=== PATIENT | female | born 1965 | race Caucasian/White ===

== ENCOUNTER 2020-04-21 02:27 | Inpatient (IN) | payer OTHER, SELFPAY ==
[~2020-04-21] VITALS: Ht 167.6 cm; Wt 48.8 kg
[~2020-04-21 02:27] MED LIST: KETO10 PO
[2020-04-21 02:51] LABS: Source, Urine Catheter
[2020-04-21 02:55] LABS: Bilirubin, Urine Neg (Neg); Blood, Urine 3+ (Neg); Glucose Qualitative, Urine Neg (Neg); Ketones, Urine Neg (Neg); Leukocyte Esterase, Urine 1+ (Neg); Nitrite, Urine Neg (Neg); Protein, Urine 3+ (Neg); Urobilinogen, Urine NORM (Normal)
[2020-04-21 02:57] LABS: BASOPHILS ABSOLUTE AUTO 0.07 K/mm3 (0.00-0.23); BASOPHILS PERCENT AUTO 1 % (0-2); EOSINOPHILS ABSOLUTE AUTO 0.06 K/mm3 (0.00-0.68); EOSINOPHILS PERCENT AUTO 1 % (0-6); Hematocrit 38.6 % (33.0-51.0); Hemoglobin 12.7 g/dL (11.5-16.0); IMMATURE GRAN ABSOLUTE AUTO 0.02 K/mm3 (0.00-0.10); IMMATURE GRAN PERCENT AUTO 0 % (0-1); LYMPHOCYTES ABSOLUTE AUTO 2.57 K/mm3 (0.84-5.20); LYMPHOCYTES PERCENT AUTO 24 % (21-46); MONOCYTES ABSOLUTE AUTO 0.61 K/mm3 (0.16-1.47); MONOCYTES PERCENT AUTO 6 % (4-13); Mean Corpuscular HGB 30.2 pg (26.0-34.0); Mean Corpuscular HGB Conc 32.9 g/dL (31.5-36.5); Mean Corpuscular Volume 92 fL (80-100); Mean Platelet Volume 9.6 fL (9.1-12.4); NEUTROPHILS ABSOLUTE AUTO 7.38 K/mm3 (1.96-9.15); NEUTROPHILS PERCENT AUTO 69 % (41-73); Platelet Count 218 K/mm3 (150-400); RDW Coefficient Variation 13.1 % (11.7-14.2); RDW Standard Deviation 44.3 fL (35.1-46.3); White Blood Cell Count 10.71 K/mm3 (4.00-11.30)
[2020-04-21 03:06] LABS: U Amphetamine Screen Not Detected; U Barbituate Screen Not Detected; U Buprenorphine Screen Not Detected; U Cannabinoids Screen DETECTED; U Cocaine Screen Not Detected; U Methadone Screen Not Detected; U Methamphetamine Screen Not Detected; U Opiates Screen Not Detected; U Oxycodone Screen Not Detected; U Phencyclidine Screen Not Detected; U Propoxyphene Screen Not Detected
[2020-04-21 03:10] LABS: Appearance, Urine Clear (Clear); Color, Urine Yellow (P-Yellow)
[2020-04-21 03:11] LABS: Amorphous Light (0-Heavy); Bacteria Rare /hpf; Red Blood Cells, Urine 0-2 /hpf (0-2); Squamous Epithelial Cells Few /hpf (Few); White Blood Cells, Urine Rare /hpf (0-5)
[2020-04-21 03:12] LABS: Magnesium, Blood 1.9 mg/dL (1.6-2.4)
[2020-04-21 03:13] LABS: Alanine Aminotransfer (ALT/SGP 24 U/L (12-78); Albumin, Blood 3.9 g/dL (3.4-5.0); Albumin/Globulin Ratio 1.1 (0.8-1.8); Alk Phos 82 U/L (50-136); Anion Gap 11 mmol/L (6-16); Aspartate Aminotrans (AST/SGOT 38 U/L (12-37); Bilirubin, Total 0.6 mg/dL (0.1-1.0); Blood Urea Nitrogen 10 mg/dL (8-24); Bun/Creatinine Ratio 11.6 (12.0-20.0); CO2, Blood 21 mmol/L (21-32); Calcium, Blood 7.9 mg/dL (8.5-10.1); Chloride, Blood 110 mmol/L (98-108); Creatinine, Blood 0.86 mg/dL (0.40-1.00); Ethanol (Alcohol), Blood, Med 264 mg/dL; Globulin, Blood 3.7 g/dL (2.2-4.0); Glomerular Filtration Rate >60 (60-); Glucose, Blood 142 mg/dL (70-99); Potassium, Blood 3.8 mmol/L (3.5-5.5); Salicylate 5.5 mg/dL (2.8-20.0); Sodium, Blood 142 mmol/L (136-145); Total Protein, Blood 7.6 g/dL (6.4-8.2)
[2020-04-21 03:21] LABS: Acetaminophen, Random <2.0 ug/mL (10.0-30.0)
[2020-04-21 03:24] LABS: PCO2 Arterial 29.7 mmHg (35-45); PO2 Arterial 132 mmHg (80-100); pH Blood Arterial 7.39 (7.35-7.45)
[2020-04-21 05:24] LABS: U Benzodiazapine Screen Not Detected
--- NOTE | 2020-04-21 06:17 | NUR ---
ASSUMED PT CARE AT 0450 FROM BILINGUAL CUSTOMER SERVICE SPECIALIST PT ARRIVED ON UNIT INTUBATED AND SOMEWHAT SEDATED. PER REPORT PT WAS VERY DIFFICULT TO SEDATE D/T HYPOTENSION. PROPOFOL INFUSING AT 12MCG/KG/MIN AND VERSED AT 7MG/HR, WITH NS WIDE OPEN. SBP'S 120'S. PTS EYES OPEN TO NOXIOUS AND VERBAL STIMULI; HOWEVER, DOES NOT FOLLOW COMMANDS. INCREASED PROPOFOL TO 50MCG/KG/MIN AND DECREASED VERSED GTT. EVENTUALLY ABLE TO INCREASE PROPOFOL TO 60MCG/KG/MIN AND TITRATED VERSED OFF. PT APPEARS COMFORTABLY SEDATED AT THIS TIME. BARKER CATHETER IS PATENT AND DRAINING CLEAR YELLOW URINE TO GRAVITY. BILATERAL SOFT WRIST RESTRAINTS IN PLACE TO PROTECT AIRWAY. VENT SETTINGS AC 16, VT 450, PEEP 5, FIO2 25%; BIOX >90%. VSS, SEE FLOWSHEET. OG HAS UNDIGESTED OUTPUT NOTED TO CANISTER; HOOKED TO LIS. NO FAMILY AT BEDSIDE WITH PT UPON ARRIVAL; THEREFORE, H&P NOT OBTAINED. TO CALL AND GIVE US PT MED LIST. WILL CONTINUE TO MONITOR UNTIL REPORT IS HANDED OFF TO ONCOMING RN.
--- NOTE | 2020-04-21 08:00 | NUR ---
ASSUMED CARE BEDSIDE REPORT FROM VALERY GRIGGS. PT INTUBATED AND SEDATED. VENT SETTINGS AC 16/450/5/25%. PROPOFOL GTT 55 MCG/KG/MIN. PT INTERMITTANTLY AGITATED, PULLING ON RESTRAINTS AND COUGHING, THEN APPEARS TO REST. DOES NOT FOLLOW COMMANDS. COUGH/GAG/SWALLOW REFLEX. LUNGS CLEAR. SCANT THIN CLEAR SECRETIONS THROUGH ETT. OGT TO LIS, UNDIGESTED EMESIS. ABD ROUND, SOFT, NON TENDER. BT X 4. BARKER PATENT, DRAINING CLEAR YELLOW URINE TO GRAVITY. IV TO RUE INFILTRATED, REMOVED. PLACED POWERGLIDE TO LUE. IVF AT 200 ML/HR. VSS. WILL CONTINUE TO MONITOR.
--- NOTE | 2020-04-21 10:15 | NUR ---
PROPOFOL PLACED ON STANDBY AT APPROX 0845. PT OPENS EYES SPONTANEOUSLY. FOLLOWS SIMPLE COMMANDS. COUGH/GAG/SWALLOW REFLEX PRESENT. SCANT SECRETIONS. VENT SETTINGS CHANGED TO SPONT. PT TOLERATING WELL. DR HUNTER ROUNDED. EXTUBATED PT AT 1002. ROOM MITIGATION COMPLETE. 1:1 SIT[address] PENN CONSULTED. WILL CONTINUE TO MONITOR.
[2020-04-21] MEDS ORDERED: TRAZ150T57 PO (12:52)
[2020-04-21] MEDS ORDERED: PRAZ2 PO (12:52)
[2020-04-21] MEDS ORDERED: LEVSOD75 PO (12:53)
--- NOTE | 2020-04-21 13:09 | NUR ---
UPDATE FROM SPOKE c ED ON PHONE. STATES PT HAS BEEN SOBER FOR 10 YEARS. DENIES DAILY ETOH USE. STATES THEY WATCHED A MOVIE LAST WEEKEND THAT EXACERBATED HER PTSD. 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 DENIES OTHER HX. MED LIST UPDATED. PT A&OX3. RECALLS LAST NOC EVENTS. STATES SHE TRIED TO KILL HERSELF BECAUSE HER SAID HE WAS GOING TO DIVORCE HER. WHEN ASKED ABOUT IF SHE IS STILL SUICIDAL, PT SHRUGS SHOULDERS AND SAYS "HE IS MY EVERYTHING."
--- NOTE | 2020-04-21 14:21 | NUR ---
NO safety plan. Interview attempted 130p today. Pt mother at bedside --traveled from [place] this morning. Patient did not wake enough to participate. Mother reports patient has had prvious OD and has been psychiatrically hospitalized. for 12 years to current and luives in [place]. Patient was in [facility]. Mother was not forthcoming with any history of substance abuse, but alluded to her daughter drinking. Patient appeared older than stated age--mother appeared younger than the patient. RN informed of psychiatric history and previous attempts. Rebecca Arndt M.Ed., [facility] behavior Health Director
--- NOTE | 2020-04-21 16:59 | NUR ---
PT EXTUBATED THIS SHIFT, SEE NOTE. TOLERATED WELL. PT A&OX 3. ANSWERS QUESTIONS APPROPRIATELY. FOLLOWS COMMANDS. PASSED BEDSIDE SWALLOW EVAL. TOLERATING ICE CHIPS AT THIS TIME, PREVIOUSLY HAD N/V, RESOLVED c ZOFRAN. PT STATUS CHANGED TO MED s TELE. DR FILI SCOTT TODAY, RECOMMENDED INPT PLACEMENT. PT HAS HAD 10-20 PREVIOUS OD'S. SI RISK CHANGED TO MODERATE, PT REPORTS SI, STATES SHE WILL NOT HARM SELF DURING THIS VISIT. POISON CONTROL UPDATED. MEDICALLY CLEARED LONG NEURO STATUS WNL. COOPERATIVE c CARE, TEARFUL. VSS. WILL CONTINUE TO MONITOR UNTIL REPORT TO ONCOMING NURSE.
--- NOTE | 2020-04-21 20:25 | NUR ---
INITIAL ASSESSMENT: PATIENT A/OX3. DENIES ANY ACTUAL THOUGHTS OF KILLING HERSELF SINCE SHE WAS LAST ASKED, DENIES DOING ANYTHING, STARTING TO DO ANYTHING, OR PREPARING TO DO ANYTHING TO END HER LIFE SINCE SHE WAS LAST ASKED. REPORTS THAT HER THROAT FEELS SCRATCHY. REPORTS GENERALIZED PAIN IN HER SHOULDERS, ARMS, AND HANDS RELATED TO HX ARTHRITIS. REPORTS PAIN IN HER SHERYL, SHERYL IS SWOLLEN WITH SOME SWELLING NOTED, FROM IV INFILTRATION. ON ROOM AIR. DENIES SOB AND CHEST PAIN. ZOFRAN GIVEN FOR NAUSEA. PATIENT UP TO TOILET WITH 2 PERSON ASSIST, HAD TO SIT FOR A MINUTE PRIOR TO GETTING UP D/T DIZZINESS. BEDBATH COMPLETED AND LINENS CHANGED, TOLERATED WELL. DISCUSSED POC FOR SHIFT. VIEWED ROOM FOR POTENTIAL HAZARDS. VIDEO MONITORING ON AND CONFIRMED WITH DIGITAL MEDIA PRODUCER. CALL LIGHT IN REACH. BED ALARM ON.
--- NOTE | 2020-04-21 21:18 | NUR ---
PHARMACIST AGA STATES THAT MINIPRESS IS ORDERED TWO SEPARATE ORDERS SO THAT PATIENT ONLY HAS TO TAKE TWO PILLS INSTEAD OF 6. PATIENT TAKES MINIPRESS 6 MG PO AT BEDTIME AT HOME. AGA STATES THAT SHE WILL PUT IN A NOTE TO PREVENT FUTURE CONFUSION.
--- NOTE | 2020-04-21 21:20 | NUR ---
CALLED AUREA. NOTIFIED HER PATIENT REQUESTING CYCLOBENZAPRINE FOR HER CHRONIC ARTHRITIS AND MUSCLE SPASMS. ALSO REQUESTING PRILOSEC. AUREA STATES NO CYCLOBENZAPRINE AT THIS TIME, SHE WILL REVIEW CHART AND PUT IN OTHER ORDERS.
--- NOTE | 2020-04-21 21:35 | NUR ---
PATIENT DENIES TYLENOL AT THIS TIME, STATES SHE WANTS TO WAIT AND SEE HOW THE MINIPRESS HELPS. LAYING IN BED ON HER SIDE WITH LIGHTS OUT TRYING TO SLEEP. GAVE HER FRESH WATER. VIDEO MONITORING ON. BED ALARM ON. CALL LIGHT IN REACH.
[2020-04-21] MEDS ORDERED: CYCL10 PO (21:38)
--- NOTE | 2020-04-21 21:40 | NUR ---
PATIENT STATES HER BROUGHT IN HER BELONGINGS AND SHE WOULD LIKE TO SEE WHAT THEY WERE. BELONGINGS WERE ON THE SHELF. BELONGINGS WERE HER TOP DENTURES, MOD SIZE BLANKET, AND TWO WHITE SLIPPERS. SLIPPERS AND BLANKET LEFT ON SHELF PER PATIENT REQUEST, DENTURES AT BEDSIDE.
--- NOTE | 2020-04-22 00:35 | NUR ---
PATIENT STATES SHE DOES NOT WANT THE FLU VACCINE.
--- NOTE | 2020-04-22 00:35 | NUR ---
UPDATE: UP TO BATHROOM WITH 1 ASSIST. NO SHAKING OR TREMORS NOTED AT THIS TIME. DENIED DIZZINESS WHEN UP, AMBULATED MUCH BETTER THAN PREVIOUSLY. MEDICATED WITH TYLENOL FOR CHRONIC PAIN IN HER SHOULDERS AND BACK. DENIES NAUSEA AT THIS TIME, TOLERATING WATER. VIDEO MONITORING ON. STATES THAT SHE HAS BEEN ABLE TO SLEEP. CALL LIGHT IN REACH. BED ALARM ON.
[2020-04-22] MEDS ORDERED: CYCL10 PO (00:53)
[2020-04-22] MEDS ORDERED: Hydrocortiso453.6 G1 TOP (00:53)
[2020-04-22] MEDS ORDERED: Ketoconazole15 GM TOP (00:53)
[2020-04-22 04:20] LABS: BASOPHILS ABSOLUTE AUTO 0.01 K/mm3 (0.00-0.23); BASOPHILS PERCENT AUTO 0 % (0-2); EOSINOPHILS ABSOLUTE AUTO 0.02 K/mm3 (0.00-0.68); EOSINOPHILS PERCENT AUTO 1 % (0-6); Hematocrit 31.9 % (33.0-51.0); Hemoglobin 10.8 g/dL (11.5-16.0); IMMATURE GRAN ABSOLUTE AUTO 0.01 K/mm3 (0.00-0.10); IMMATURE GRAN PERCENT AUTO 0 % (0-1); LYMPHOCYTES ABSOLUTE AUTO 1.03 K/mm3 (0.84-5.20); LYMPHOCYTES PERCENT AUTO 26 % (21-46); MONOCYTES ABSOLUTE AUTO 0.33 K/mm3 (0.16-1.47); MONOCYTES PERCENT AUTO 8 % (4-13); Mean Corpuscular HGB Conc 33.9 g/dL (31.5-36.5); Mean Corpuscular Volume 92 fL (80-100); Mean Platelet Volume 9.8 fL (9.1-12.4); NEUTROPHILS ABSOLUTE AUTO 2.64 K/mm3 (1.96-9.15); NEUTROPHILS PERCENT AUTO 65 % (41-73); Platelet Count 128 K/mm3 (150-400); RDW Coefficient Variation 13.1 % (11.7-14.2); Red Blood Cell Count 3.48 M/mm3 (3.80-5.20); White Blood Cell Count 4.04 K/mm3 (4.00-11.30)
[2020-04-22 04:42] LABS: Anion Gap 8 mmol/L (6-16); Blood Urea Nitrogen 7 mg/dL (8-24); Bun/Creatinine Ratio 8.5 (12.0-20.0); CO2, Blood 22 mmol/L (21-32); Calcium, Blood 7.9 mg/dL (8.5-10.1); Chloride, Blood 107 mmol/L (98-108); Creatinine, Blood 0.82 mg/dL (0.40-1.00); Glomerular Filtration Rate >60 (60-); Glucose, Blood 90 mg/dL (70-99); Phosphorus, Blood 3.1 mg/dL (2.5-4.9); Potassium, Blood 3.5 mmol/L (3.5-5.5); Sodium, Blood 137 mmol/L (136-145)
--- NOTE | 2020-04-22 06:55 | NUR ---
DR. HUNTER AT BEDSIDE. DISCUSSED POC. AWARE PATIENT NOT ON TELE AND RISK THAT ROBAXIN MAY PROLONG QT PER NOTES.
--- NOTE | 2020-04-22 07:26 | NUR ---
SHIFT SUMMARY: PATIENT A/OX3. MEDICATED WITH TYLENOL FOR PAIN, PATIENT ABLE TO SLEEP. TOLERATING ICE WATER AND SPRITE ONLY, ZOFRAN GIVEN X2 FOR NAUSEA. UP WITH SBA TO BATHROOM. MOD SUICIDE RISK PRECAUTIONS IN PLACE, VIDEO MONITORING ON. PATIENT HAS DENIED SUICIDAL IDEATION THIS SHIFT. TEARFUL AT TIMES. REPORT GIVEN TO ONCOMING RN.
--- NOTE | 2020-04-22 07:30 | NUR ---
ASSUMED CARE- PT RESTING IN BED, A/O X4, ANSWERS QUESTIONS, IS VERY OPEN ABOUT REASON SHE IS HERE. STATES SHE WANTS HELP AND HER PTSD IS WHAT STARTED ALL OF THIS YESTERDAY. REQUESTED FOR A KRISTIN AND A TELE PSYCH EVAL DUE TO NOT REMEMBERING WHAT SHE DISCUSSED WITH THE PSYCH DOCTOR YESTERDAY. KRISTIN CALLED AND SPOKE TO THE MD ABOUT GETTING A TELE PSYCH EVAL TODAY.
--- NOTE | 2020-04-22 16:31 | NUR ---
Shelley was tearful and talkative. She responded well to spiritual college admissions counselor and prayer. I will remain available.
--- NOTE | 2020-04-22 19:22 | NUR ---
SHIFT SUMMARY- PT A/O X3 TODAY, VERY TEARFUL WHEN TALKING ABOUT WHAT HAPPENED YESTERDAY. LET PT TALK TO HER AND I COULD HERE HIM YELLING AT HER FROM THE DOORWAY. ASKED FOR HER TO GET OFF THE PHONE AND LET HER KNOW THAT WHAT JUST HAPPENED WAS NOT OK AND I DID NOT WANT HER TO LISTEN TO ANYTHING NEGATIVE RIGHT NOW BECAUSE SHE NEEDS TO HEAL. VSS, RR NORMAL, HAVING NAUSEA ALL DAY BUT NO VOMITING. DRINKING ONLY LIQUIDS AT THIS TIME. PT ASKED TO SEE ELECTRICAL DRAFTER, SO CALLED AND PT WAS SEEN. REQUESTED TO TALK TO PSYCHIATRIST, SO TELE PSYCH SET UP. PT TO BE TRANSFERED TO [facility] FOR INPATIENT PSYCH.
--- NOTE | 2020-04-22 19:29 | NUR ---
LLOYD CALLED TO JADE GRIGGS AT COUNTS INCLUDE 234 BEDS AT THE [facility]. SECURE TRANSPORT WILL PICK HER UP ANYA (AROUND 830PM)
--- NOTE | 2020-04-22 20:50 | NUR ---
TRANSPORT ARRIVED TO TAKE PT TO [facility]. COPY OF CHART AND OTHER PAPERWORK GIVEN TO QUICK MIXER OPERATOR. INDWELLING SL PIV REMOVED WITH TIP INTACT, TOLERATED WELL. ALL BELONGINGS GATHERED, CATALOGED, AND TAKEN WITH PT VIA WHEELCHAIR TO SECURE TRANSPORT TO [facility].
== END 2020-04-22 21:00 | DRG 917 ==
LOC: ER 02:27 → ICUE 03:32 → ICUW 03:32 → ICUE 04:13
PROVIDERS: Emergency Medicine; Internal Medicine Critical Care Medicine; ADMIT Family Medicine
PROC: 0BH17EZ Insertion of Endotracheal Airway into Trachea, Via Natural or Artificial Opening (ICD-10-PCS; principal; 2020-04-21)
PROC: 5A1935Z Respiratory Ventilation, Less than 24 Consecutive Hours (ICD-10-PCS; 2020-04-21)
DX: T42.8X1A Poisoning by antiparkinsonism drugs and other central muscle-tone depressants, accidental (unintentional), initial encounter (principal); J96.01 Acute respiratory failure with hypoxia; F10.121 Alcohol abuse with intoxication delirium; F33.9 Major depressive disorder, recurrent, unspecified; T68.XXXA Hypothermia, initial encounter; E03.9 Hypothyroidism, unspecified; F43.10 Post-traumatic stress disorder, unspecified; F17.210 Nicotine dependence, cigarettes, uncomplicated; R41.82 Altered mental status, unspecified
CPT/HCPCS: 31500; 31720; 36415; 36600; 51702; 70450; 71045; 80048; 80053; 81001; 82803; 83735; 84100; 85025; 94002; 94003; 99285-25; A9270; C1751; G0480; J0330; J1650; J2250; J2405; J2704; J3010; J3411; J3475; J7030; J7042

== ENCOUNTER 2020-10-19 10:33 | Emergency (ER) | payer OTHER ==
[~2020-10-19] VITALS: Ht 170.2 cm; Wt 49.9 kg
[~2020-10-19 10:33] MED LIST changes: +CYCL10 PO; +Hydrocortiso453.6 G1 TOP; +Ketoconazole15 GM TOP; +LEVSOD75 PO; +PRAZ2 PO; +TRAZ150T57 PO
[2020-10-19] MEDS ORDERED: Monodox100 MG PO (11:08)
== END 2020-10-19 11:07 | disposition home or self-care (01) ==
LOC: ER 10:33
DX: L08.9 Local infection of the skin and subcutaneous tissue, unspecified (principal); S51.851A Open bite of right forearm, initial encounter; Z88.0 Allergy status to penicillin; Z88.5 Allergy status to narcotic agent; W55.01XA Bitten by cat, initial encounter
CPT/HCPCS: 99282

== ENCOUNTER 2022-09-28 15:18 | Inpatient (IN) | payer OTHER ==
[~2022-09-28] VITALS: Ht 165.1 cm; Wt 51.9 kg
[~2022-09-28 15:18] MED LIST changes: +Monodox100 MG PO
[2022-09-28 16:02] LABS: BASOPHILS ABSOLUTE AUTO 0.05 K/mm3 (0.00-0.23); BASOPHILS PERCENT AUTO 1 % (0-2); EOSINOPHILS ABSOLUTE AUTO 0.07 K/mm3 (0.00-0.68); EOSINOPHILS PERCENT AUTO 1 % (0-6); Hematocrit 36.3 % (33.0-51.0); Hemoglobin 12.2 g/dL (11.5-16.0); IMMATURE GRAN ABSOLUTE AUTO 0.01 K/mm3 (0.00-0.10); IMMATURE GRAN PERCENT AUTO 0 % (0-1); LYMPHOCYTES ABSOLUTE AUTO 2.14 K/mm3 (0.84-5.20); LYMPHOCYTES PERCENT AUTO 42 % (21-46); MONOCYTES ABSOLUTE AUTO 0.25 K/mm3 (0.16-1.47); MONOCYTES PERCENT AUTO 5 % (4-13); Mean Corpuscular HGB 29.5 pg (26.0-34.0); Mean Corpuscular HGB Conc 33.6 g/dL (31.5-36.5); Mean Corpuscular Volume 88 fL (80-100); Mean Platelet Volume 9.2 fL (9.1-12.4); NEUTROPHILS ABSOLUTE AUTO 2.63 K/mm3 (1.96-9.15); NEUTROPHILS PERCENT AUTO 51 % (41-73); Platelet Count 248 K/mm3 (150-400); RDW Coefficient Variation 14.3 % (11.7-14.2); RDW Standard Deviation 46.1 fL (35.1-46.3); Red Blood Cell Count 4.13 M/mm3 (3.80-5.20); White Blood Cell Count 5.15 K/mm3 (4.00-11.30)
[2022-09-28 17:23] LABS: Source, Urine Straight Cath
[2022-09-28 17:49] LABS: Appearance, Urine Clear (Clear); Bilirubin, Urine Neg (Neg); Blood, Urine 2+ (Neg); Color, Urine Yellow (P-Yellow); Glucose Qualitative, Urine Neg (Neg); Ketones, Urine Neg (Neg); Leukocyte Esterase, Urine Neg (Neg); Nitrite, Urine Neg (Neg); Protein, Urine 2+ (Neg); Urobilinogen, Urine NORM (Normal)
[2022-09-28 18:20] LABS: U Amphetamine Screen Not Detected; U Barbituate Screen Not Detected; U Benzodiazapine Screen Not Detected; U Buprenorphine Screen Not Detected; U Cannabinoids Screen DETECTED; U Cocaine Screen Not Detected; U Methadone Screen Not Detected; U Methamphetamine Screen Not Detected; U Opiates Screen Not Detected; U Oxycodone Screen Not Detected; U Phencyclidine Screen Not Detected; U Propoxyphene Screen Not Detected
[2022-09-28 18:23] LABS: Bacteria Rare /hpf; Red Blood Cells, Urine 0-2 /hpf (0-2); Squamous Epithelial Cells Few /hpf (Few); White Blood Cells, Urine 0-2 /hpf (0-5)
[2022-09-28 18:42] LABS: Salicylate 6.7 mg/dL (2.8-20.0)
[2022-09-28 19:08] LABS: Acetaminophen, Random <2.0 ug/mL (10.0-30.0); Alanine Aminotransfer (ALT/SGP 22 U/L (12-78); Albumin, Blood 4.1 g/dL (3.4-5.0); Albumin/Globulin Ratio 1.3 (0.8-1.8); Alk Phos 74 U/L (50-136); Anion Gap 8 mmol/L (6-16); Aspartate Aminotrans (AST/SGOT 40 U/L (12-37); Bilirubin, Total 0.2 mg/dL (0.1-1.0); Blood Urea Nitrogen 11 mg/dL (8-24); Bun/Creatinine Ratio 11.9 (12.0-20.0); CO2, Blood 19 mmol/L (21-32); Calcium, Blood 8.5 mg/dL (8.5-10.1); Chloride, Blood 115 mmol/L (98-108); Creatinine, Blood 0.92 mg/dL (0.40-1.00); Ethanol (Alcohol), Blood, Med 356 mg/dL; Globulin, Blood 3.2 g/dL (2.2-4.0); Glomerular Filtration Rate 73 (60-); Glucose, Blood 78 mg/dL (70-99); Potassium, Blood 4.1 mmol/L (3.5-5.5); Sodium, Blood 142 mmol/L (136-145); Total Protein, Blood 7.3 g/dL (6.4-8.2)
[2022-09-28 19:50] VITALS: BP 129/81
[2022-09-28 22:30] VITALS: BP 127/71
[2022-09-29 00:50] VITALS: BP 105/91
[2022-09-29 03:47] LABS: BASOPHILS ABSOLUTE AUTO 0.04 K/mm3 (0.00-0.23); BASOPHILS PERCENT AUTO 1 % (0-2); EOSINOPHILS ABSOLUTE AUTO 0.01 K/mm3 (0.00-0.68); EOSINOPHILS PERCENT AUTO 0 % (0-6); Hematocrit 32.7 % (33.0-51.0); Hemoglobin 11.2 g/dL (11.5-16.0); IMMATURE GRAN ABSOLUTE AUTO 0.02 K/mm3 (0.00-0.10); IMMATURE GRAN PERCENT AUTO 0 % (0-1); LYMPHOCYTES ABSOLUTE AUTO 0.85 K/mm3 (0.84-5.20); LYMPHOCYTES PERCENT AUTO 11 % (21-46); MONOCYTES ABSOLUTE AUTO 0.46 K/mm3 (0.16-1.47); MONOCYTES PERCENT AUTO 6 % (4-13); Mean Corpuscular HGB 29.9 pg (26.0-34.0); Mean Corpuscular HGB Conc 34.3 g/dL (31.5-36.5); Mean Corpuscular Volume 87 fL (80-100); Mean Platelet Volume 9.2 fL (9.1-12.4); NEUTROPHILS ABSOLUTE AUTO 6.45 K/mm3 (1.96-9.15); NEUTROPHILS PERCENT AUTO 82 % (41-73); Platelet Count 201 K/mm3 (150-400); RDW Coefficient Variation 14.5 % (11.7-14.2); RDW Standard Deviation 46.2 fL (35.1-46.3); Red Blood Cell Count 3.75 M/mm3 (3.80-5.20); White Blood Cell Count 7.83 K/mm3 (4.00-11.30)
[2022-09-29 04:16] LABS: Albumin, Blood 3.5 g/dL (3.4-5.0); Albumin/Globulin Ratio 1.1 (0.8-1.8); Bilirubin, Total 0.3 mg/dL (0.1-1.0); Bun/Creatinine Ratio 17.1 (12.0-20.0); Calcium, Blood 8.2 mg/dL (8.5-10.1); Creatinine, Blood 0.82 mg/dL (0.40-1.00); Globulin, Blood 3.2 g/dL (2.2-4.0); Magnesium, Blood 1.4 mg/dL (1.6-2.4); Potassium, Blood 3.8 mmol/L (3.5-5.5); Total Protein, Blood 6.7 g/dL (6.4-8.2)
[2022-09-29 04:30] VITALS: BP 142/75
--- NOTE | 2022-09-29 06:59 | NUR ---
End of shift Pt admitted from the ED to PCU8. Pt was unresponsive at time of admission. Wrist restraints in place. Wrist restraints were removed, Pt was no longer pulling at lines. Verified with MD. At midnight, CBG was checked which was 47. 1 amp 50 given. Shortly after glucose given, Pt rolled over and was A/Ox3 only unable to explain why she was in the hospital. Since midnight Pt has needed 1 additonal amp. Glucose was 60 at 0500 check. Last recheck 140. Pt has been pleasant and cooperative with care. Pt reports that she is not suicidal but does endorse that she was drinking alcohol before she came in. Sitter remains at bedside for safety pending psych consult.
--- NOTE | 2022-09-29 07:38 | NUR ---
ignition risk Educated pt on ignition risk in the hospital. Pt on 1:1 observation for SI and does not have access to her own belongings. Will educate visitors as they arrive.
[2022-09-29 09:42] VITALS: BP 132/75
[2022-09-29] MEDS ORDERED: HYDHCL25 PO (09:49)
--- NOTE | 2022-09-29 12:19 | NUR ---
REASSESSMENT PT HAS BEEN RESTING IN BED THROUGHOUT THE MORNING. CONTINUES WITH 1:1 SITTER. REMAINS ALERT AND ORIENTED. BG SLIGHTLY LOW BEFORE LUNCH, PT GIVEN ORANGE JUICE AND THEN LUNCH TRAY. DR. PEREZ OK'D PT TO HAVE DIET ON HER ROUNDS. SHE ALSO GAVE ORDERS TO SWITCH TO MED TELE STATUS. LUNGS REMAIN CLEAR, RA, SR, BP STABLE. PT DENIES SI AT THIS TIME. PRECOMMITMENT RADIOLOGY PHYSICIAN CAME BY THIS AM AND TALKED WITH PT. CONSULT FOR DR. YOU IN.
[2022-09-29 15:28] VITALS: BP 143/92
--- NOTE | 2022-09-29 17:14 | NUR ---
SHIFT SUMMARY PT HAS BEEN UP IN THE ROOM THIS AFTERNOON. CONTINUES TO DENY CURRENT SUICIDAL IDEATION CONTINUES WITH 1:1 SITTER UNTIL MD OR PSYCH DOWNGRADES SUICIDE RISK. LUNGS REMAIN CLEAR, RA, SR, BP STABLE. PT HAS VOIDED SINCE BARKER REMOVED THIS MORNING AND HAD A BM THIS AFTERNOON WELL. CONTINUING TO MONITOR.
[2022-09-29 19:21] VITALS: BP 153/95
[2022-09-30 00:12] VITALS: BP 147/89
[2022-09-30 03:58] VITALS: BP 154/100
--- NOTE | 2022-09-30 06:23 | NUR ---
End of shift note. Pt has slept for much of the shift. No complaints of pain or discomfort. Denies SI. 1:1 sitter remains until she can be seen by psych.
[2022-09-30 08:31] LABS: Albumin, Blood 3.8 g/dL (3.4-5.0); Bilirubin, Total 0.8 mg/dL (0.1-1.0); Bun/Creatinine Ratio 9.6 (12.0-20.0); Calcium, Blood 9.1 mg/dL (8.5-10.1); Creatinine, Blood 0.84 mg/dL (0.40-1.00); Globulin, Blood 3.8 g/dL (2.2-4.0); Potassium, Blood 3.8 mmol/L (3.5-5.5); Total Protein, Blood 7.6 g/dL (6.4-8.2)
[2022-09-30 08:45] VITALS: BP 136/99
--- NOTE | 2022-09-30 12:00 | NUR ---
SUICIDE PRECAUTIONS: Psychiatrist d/c'd suicide precautions. Sitter excused from bedside. Plan of care discussed with patient. She verbalizes understanding that she is required to stay in the hospital one more night through there is no longer a sitter. Pt reponds with, "I guess thats God's plan." She is plesant and agreeable to care.
--- NOTE | 2022-09-30 12:20 | NUR ---
CELL PHONE: Pt asked for her personal cell phone. RN clarified that she is allowed to have her cell phone as long as she is asking appropriately; If RN observes/overhears inappropriate conversations, arguing, yelling or other triggering events it will be returned to her other belongings. Pt verbalizes understanding and agreement.
[2022-09-30 14:13] VITALS: BP 159/97
--- NOTE | 2022-09-30 16:32 | NUR ---
TRANSFER/SHIFT SUMMARY: Pt denies any SI or HI this shift. She has been pleasant and cooperative. Pt ambulates independently around room and makes needs known. No complaints of pain. Report given to INDU Johnson. Pt taken to room 349 via wheelchair by LIYAH.
--- NOTE | 2022-09-30 17:11 | NUR ---
NURSE NOTE/ PATIENT TRANSFER SUMMARY PATIENT TRANSFERRED FROM U8 AT 1600. PATIENT ALERT AND ORIENTED. PATIENT ORIENTED TO UNIT AND ROOM. PATIENT DOES NOT HAVE ANY NEEDS AT THIS TIME.
[2022-09-30 19:14] VITALS: BP 174/101
--- NOTE | 2022-09-30 20:34 | NUR ---
PT CALM AND COOPERATIVE WITH CARE PROVIDED, A&O x4. PT DENIED ANY SUICIDAL IDEATION; NO C/O PAIN OR DISCOMFORT. PT CONTRACTED A SAFETY PLAN. PT STATED THAT SHE HAS A WONDERFUL SUPPORT SYSTEM, AND HAS BEEN ATTENDING AA MEETINGS. PT EDUCATION REGARDING NONPHARMACOLOGICAL WAYS TO DEAL WITH STRESS AND ANXIETY. PT ALSO ASKED APPROPRIATE QUESTIONS; HANDOUTS ABOUT HYPOGLYCEMIA GIVEN TO PT. PT VERBALIZED UNDERSTANDING VIA THE TEACH-BACK METHOD. HOURLY ROUNDING COMPLETED ON SHIFT. WCTM.
--- NOTE | 2022-09-30 20:43 | NUR ---
NURSE NOTE RECEIVED FIRE IGNITION TEACHING, NOT TO SMOKE WHILE ON O2, AND NOT TO SMOKE IN THE HOSPITAL EARLIER
[2022-09-30 21:10] VITALS: BP 161/83
--- NOTE | 2022-10-01 03:42 | NUR ---
END OF SHIFT SUMMARY PT RECEIVED PRN ATARAX FOR ANXIETY, PT RATED ANXIETY 7-8/10. REASSESSMENT OF ANXIETY: PT STATED ATARAX WAS EFFECTIVE; PT FELT MORE RELAXED. 0200: PT APPEARS TO BE SLEEPING COMFORTABLY. 0350: PT EXPRESSED HAVING RACING THOUGHTS, AND COULD NOT TURN THEM OFF. ACTIVE LISTENING SKILLS AND THERAPEUTIC COMMUNICATION USED. PROVIDED PT WITH A MAGAZINE TO HELP ASSIST WITH FALLING ASLEEP. PT CONTINUES TO DENY SI/HI. PT ABLE TO MAKE NEEDS KNOWN. PT AMBULATES INDEPENDENTLY, CONTINENT OF BOWEL AND BLADDER. CALL LIGHT WITHIN REACH. WCTM.
[2022-10-01 04:21] VITALS: BP 120/89
[2022-10-01 07:30] VITALS: BP 130/86
[2022-10-01] MEDS ORDERED: Acetaminophen650 M1 PO (12:31)
--- NOTE | 2022-10-01 14:45 | NUR ---
DISCHARGE SUMMARY PATIENT CLEARED BY DR PENN, SHE DENIES SUICIDAL IDEATION AT THIS TIME. NO ACUTE EVENTS DURING PATIENT TIME ON FLOOR. FRIEND PRESENT FOR DISCHARGE, PATIENT MEDICATION AND EDUCATION PACKET PRINTED AND REVIEWED WITH PATIENT. CONSENTS SIGNED. PATIENT LEFT FACILITY WITH FRIEND AT 1338, AMBULATING WITH NO DEVICE, PATIENT REFUSED OFFER OF WHEELCHAIR.
== END 2022-10-01 13:38 | disposition home or self-care (01) | DRG 918 ==
LOC: ER 15:18 → PCU 19:32 → MEDS 09-30 16:35 → ENPENDDIS 10-01 11:38 → MEDS 10-01 13:38
PROVIDERS: Emergency Medicine; Internal Medicine; ADMIT Student in an Organized Health Care Education/Training Program
PROC: HZ2ZZZZ Detoxification Services for Substance Abuse Treatment (ICD-10-PCS; principal; 2022-09-29)
DX: T48.1X2A Poisoning by skeletal muscle relaxants [neuromuscular blocking agents], intentional self-harm, initial encounter (principal); F33.9 Major depressive disorder, recurrent, unspecified; T51.92XA Toxic effect of unspecified alcohol, intentional self-harm, initial encounter; F43.12 Post-traumatic stress disorder, chronic; F10.129 Alcohol abuse with intoxication, unspecified; E03.9 Hypothyroidism, unspecified; J30.2 Other seasonal allergic rhinitis; R41.0 Disorientation, unspecified; F17.210 Nicotine dependence, cigarettes, uncomplicated; F12.10 Cannabis abuse, uncomplicated; G89.29 Other chronic pain; Y90.8 Blood alcohol level of 240 mg/100 ml or more; F41.9 Anxiety disorder, unspecified; Z88.0 Allergy status to penicillin; Z88.1 Allergy status to other antibiotic agents; Z88.5 Allergy status to narcotic agent; Z79.890 Hormone replacement therapy; Z79.899 Other long term (current) drug therapy; Z90.49 Acquired absence of other specified parts of digestive tract; Z98.890 Other specified postprocedural states; Z78.1 Physical restraint status; Z71.41 Alcohol abuse counseling and surveillance of alcoholic; Z71.51 Drug abuse counseling and surveillance of drug abuser
CPT/HCPCS: 36415; 51702; 80053; 81001; 81025; 82947; 83735; 85025; 93005; 93010; 94760; 94762; 96374; 99285-25; A9270; G0480; J1650; J2060; J3411; J7050; J7120

== ENCOUNTER 2022-11-02 12:15 | Observation (INO) | payer OTHER ==
[~2022-11-02] VITALS: Ht 167.6 cm; Wt 45.4 kg
[~2022-11-02 12:15] MED LIST changes: +Acetaminophen650 M1 PO; +HYDHCL25 PO
[2022-11-02 13:01] LABS: BASOPHILS ABSOLUTE AUTO 0.07 K/mm3 (0.00-0.23); BASOPHILS PERCENT AUTO 1 % (0-2); EOSINOPHILS ABSOLUTE AUTO 0.11 K/mm3 (0.00-0.68); EOSINOPHILS PERCENT AUTO 2 % (0-6); Hematocrit 41.1 % (33.0-51.0); Hemoglobin 14.2 g/dL (11.5-16.0); IMMATURE GRAN ABSOLUTE AUTO 0.01 K/mm3 (0.00-0.10); IMMATURE GRAN PERCENT AUTO 0 % (0-1); LYMPHOCYTES PERCENT AUTO 56 % (21-46); MONOCYTES ABSOLUTE AUTO 0.51 K/mm3 (0.16-1.47); MONOCYTES PERCENT AUTO 8 % (4-13); Mean Corpuscular HGB 30.1 pg (26.0-34.0); Mean Corpuscular HGB Conc 34.5 g/dL (31.5-36.5); Mean Corpuscular Volume 87 fL (80-100); Mean Platelet Volume 9.4 fL (9.1-12.4); NEUTROPHILS ABSOLUTE AUTO 2.28 K/mm3 (1.96-9.15); NEUTROPHILS PERCENT AUTO 34 % (41-73); Platelet Count 244 K/mm3 (150-400); RDW Coefficient Variation 14.1 % (11.7-14.2); RDW Standard Deviation 45.3 fL (35.1-46.3); Red Blood Cell Count 4.72 M/mm3 (3.80-5.20); White Blood Cell Count 6.78 K/mm3 (4.00-11.30)
[2022-11-02 13:11] LABS: Salicylate 9.1 mg/dL (2.8-20.0)
[2022-11-02 13:49] LABS: Alanine Aminotransfer (ALT/SGP 27 U/L (12-78); Albumin, Blood 4.3 g/dL (3.4-5.0); Albumin/Globulin Ratio 1.1 (0.8-1.8); Alk Phos 93 U/L (50-136); Anion Gap 9 mmol/L (6-16); Aspartate Aminotrans (AST/SGOT 47 U/L (12-37); Bilirubin, Total 0.3 mg/dL (0.1-1.0); Blood Urea Nitrogen 10 mg/dL (8-24); Bun/Creatinine Ratio 12.1 (12.0-20.0); CO2, Blood 22 mmol/L (21-32); Calcium, Blood 8.8 mg/dL (8.5-10.1); Chloride, Blood 109 mmol/L (98-108); Creatinine, Blood 0.83 mg/dL (0.40-1.00); Ethanol (Alcohol), Blood, Med 392 mg/dL; Glomerular Filtration Rate 82 (60-); Glucose, Blood 102 mg/dL (70-99); Potassium, Blood 4.1 mmol/L (3.5-5.5); Sodium, Blood 140 mmol/L (136-145); Total Protein, Blood 8.3 g/dL (6.4-8.2)
[2022-11-02 13:58] LABS: Acetaminophen, Random <2.0 ug/mL (10.0-30.0)
[2022-11-02] MEDS ORDERED: CYCLOBENZAPRINE HCL (14:36)
[2022-11-02] MEDS ORDERED: OMEP20ER (14:36)
[2022-11-02] MEDS ORDERED: VENLAFAXINE HC225 MG PO (14:36)
[2022-11-02 17:51] LABS: Source, Urine Clean Catch
[2022-11-02 18:15] LABS: Appearance, Urine Clear (Clear); Bilirubin, Urine Neg (Neg); Blood, Urine 4+ (Neg); Color, Urine Yellow (P-Yellow); Glucose Qualitative, Urine Neg (Neg); Ketones, Urine 1+ (Neg); Leukocyte Esterase, Urine Neg (Neg); Nitrite, Urine Neg (Neg); Protein, Urine 3+ (Neg); Urobilinogen, Urine NORM (Normal)
[2022-11-02 18:29] LABS: U Amphetamine Screen Not Detected; U Barbituate Screen Not Detected; U Benzodiazapine Screen Not Detected; U Buprenorphine Screen Not Detected; U Cannabinoids Screen DETECTED; U Cocaine Screen Not Detected; U Methadone Screen Not Detected; U Methamphetamine Screen Not Detected; U Opiates Screen Not Detected; U Oxycodone Screen Not Detected; U Phencyclidine Screen Not Detected; U Propoxyphene Screen Not Detected
[2022-11-02 18:34] LABS: Bacteria Few /hpf; Squamous Epithelial Cells Few /hpf (Few); White Blood Cells, Urine 0-2 /hpf (0-5)
[2022-11-02 18:44] VITALS: BP 142/90
[2022-11-03] MEDS ORDERED: CHLO25 PO (13:03)
== END 2022-11-03 13:31 | disposition home or self-care (01) ==
LOC: ER 12:15 → EOR 12:16
PROVIDERS: Emergency Medicine; ADMIT Emergency Medicine
DX: T50.992A Poisoning by other drugs, medicaments and biological substances, intentional self-harm, initial encounter (principal); F41.9 Anxiety disorder, unspecified; F10.129 Alcohol abuse with intoxication, unspecified; F43.21 Adjustment disorder with depressed mood; Z88.0 Allergy status to penicillin; Z88.1 Allergy status to other antibiotic agents; Z88.5 Allergy status to narcotic agent
CPT/HCPCS: 80053; 81001; 81025; 82947; 85025; 86592; 93005; 93010; 99285-25; A9270; G0378; G0480

== ENCOUNTER → 2023-08-29 | Outpatient (CLI) | payer OTHER ==
[~2023-08-29] MED LIST changes: +CHLO25 PO; +CYCLOBENZAPRINE HCL; +OMEP20ER; +VENLAFAXINE HC225 MG PO
[2023-08-29 17:44] LABS: Lithium 0.94 mmol/L (0.60-1.20)
== END ==
LOC: LAB 15:07 → LAB SHORT 15:07
PROVIDERS: Registered Nurse
DX: Z51.81 Encounter for therapeutic drug level monitoring (principal); Z79.899 Other long term (current) drug therapy
CPT/HCPCS: 36415; 80178

== ENCOUNTER 2024-05-24 17:05 | Observation (INO) | payer OTHER ==
[~2024-05-24] VITALS: Ht 157.5 cm; Wt 44.5 kg
[~2024-05-24 17:05] MED LIST changes: -ALBU90OI INH; -AZIT250 PO; -DULERA 100 MCG/13 GM INH; -PRED20 PO; -Tessalon200 MG PO
[2024-05-24 18:00] LABS: BASOPHILS ABSOLUTE AUTO 0.03 K/mm3 (0.00-0.23); BASOPHILS PERCENT AUTO 0 % (0-2); EOSINOPHILS ABSOLUTE AUTO 0.03 K/mm3 (0.00-0.68); EOSINOPHILS PERCENT AUTO 0 % (0-6); Hematocrit 37.1 % (33.0-51.0); Hemoglobin 12.9 g/dL (11.5-16.0); IMMATURE GRAN ABSOLUTE AUTO 0.03 K/mm3 (0.00-0.10); IMMATURE GRAN PERCENT AUTO 0 % (0-1); LYMPHOCYTES ABSOLUTE AUTO 1.84 K/mm3 (0.84-5.20); LYMPHOCYTES PERCENT AUTO 24 % (21-46); MONOCYTES ABSOLUTE AUTO 0.62 K/mm3 (0.16-1.47); MONOCYTES PERCENT AUTO 8 % (4-13); Mean Corpuscular HGB Conc 34.8 g/dL (31.5-36.5); Mean Corpuscular Volume 89 fL (80-100); Mean Platelet Volume 9.4 fL (9.1-12.4); NEUTROPHILS ABSOLUTE AUTO 5.11 K/mm3 (1.96-9.15); NEUTROPHILS PERCENT AUTO 67 % (41-73); Platelet Count 288 K/mm3 (150-400); RDW Coefficient Variation 13.8 % (11.7-14.2); RDW Standard Deviation 44.5 fL (35.1-46.3); Red Blood Cell Count 4.16 M/mm3 (3.80-5.20); White Blood Cell Count 7.66 K/mm3 (4.00-11.30)
[2024-05-24 18:32] LABS: Albumin, Blood 3.9 g/dL (3.4-5.0); Albumin/Globulin Ratio 0.9 (0.8-1.8); Bilirubin, Total 0.6 mg/dL (0.1-1.0); Bun/Creatinine Ratio 19.6 (12.0-20.0); Calcium, Blood 9.5 mg/dL (8.5-10.1); Creatinine, Blood 0.92 mg/dL (0.40-1.00); Globulin, Blood 4.3 g/dL (2.2-4.0); Total Protein, Blood 8.2 g/dL (6.4-8.2)
[2024-05-24 19:06] LABS: Influenza A, PCR NEGATIVE (NEGATIVE); Influenza B, PCR NEGATIVE (NEGATIVE); Resp Syncytial Virus, PCR NEGATIVE (NEGATIVE); SARS-Cov-2 (COVID-19) PCR, MMC NEGATIVE (NEGATIVE)
[2024-05-24] MEDS ORDERED: NS 1,000 ML IV SCH (21:50)
[2024-05-24] MEDS ORDERED: Ipratropium/Albuterol SulF 2.5-0.5MG/3 ML Amp INH ONE (21:55)
[2024-05-24] MEDS ORDERED: MethylPREDNISolone Sod Succ 125 MG Vial IV ONE (21:55)
[2024-05-24] MEDS ORDERED: Azithromycin 500 MG in NS 250 ML IV ONE (23:50)
[2024-05-25] MEDS ORDERED: FLU VACC TS2024-25(6MOS UP)/PF 45 MCG/0.5 ML SYRINGE IM ONE (00:45)
[2024-05-25] MEDS ORDERED: Ondansetron HCl 2 MG / ML 2ML Vial IV PRN (00:50)
[2024-05-25] MEDS ORDERED: Ipratropium/Albuterol SulF 2.5-0.5MG/3 ML Amp INH PRN (00:50)
[2024-05-25] MEDS ORDERED: Tiotropium Bromide 2.5 MCG/ACT MIST INHAL (10 ACT/4 GM) INH SCH (05:20)
[2024-05-25] MEDS ORDERED: Mometasone/Formoterol MDI 200/5 mcg 13 GM INH SCH (05:50)
[2024-05-25] MEDS ORDERED: Benzonatate 100 MG Cap PO PRN (06:00)
[2024-05-25] MEDS ORDERED: Pantoprazole Sodium 40 MG Injection IV SCH (06:00)
[2024-05-25] MEDS ORDERED: Benzonatate 100 MG Cap PO ONE (06:00)
[2024-05-25 07:36] VITALS: BP 111/70
[2024-05-25] MEDS ORDERED: MethylPREDNISolone Sod Succ 125 MG Vial IV SCH (08:00)
[2024-05-25 08:07] LABS: BASOPHILS PERCENT AUTO 0 % (0-2); EOSINOPHILS PERCENT AUTO 0 % (0-6); Hemoglobin 11.5 g/dL (11.5-16.0); IMMATURE GRAN ABSOLUTE AUTO 0.01 K/mm3 (0.00-0.10); IMMATURE GRAN PERCENT AUTO 0 % (0-1); LYMPHOCYTES PERCENT AUTO 12 % (21-46); MONOCYTES ABSOLUTE AUTO 0.05 K/mm3 (0.16-1.47); MONOCYTES PERCENT AUTO 1 % (4-13); Mean Corpuscular HGB 30.3 pg (26.0-34.0); Mean Corpuscular HGB Conc 33.8 g/dL (31.5-36.5); Mean Corpuscular Volume 90 fL (80-100); Mean Platelet Volume 9.7 fL (9.1-12.4); NEUTROPHILS ABSOLUTE AUTO 3.79 K/mm3 (1.96-9.15); NEUTROPHILS PERCENT AUTO 87 % (41-73); Platelet Count 255 K/mm3 (150-400); RDW Coefficient Variation 13.9 % (11.7-14.2); RDW Standard Deviation 44.9 fL (35.1-46.3); White Blood Cell Count 4.35 K/mm3 (4.00-11.30)
[2024-05-25 08:15] LABS: Albumin, Blood 3.6 g/dL (3.4-5.0); Albumin/Globulin Ratio 0.9 (0.8-1.8); Bilirubin, Total 0.5 mg/dL (0.1-1.0); Creatinine, Blood 0.78 mg/dL (0.40-1.00); Globulin, Blood 4.1 g/dL (2.2-4.0); Potassium, Blood 4.1 mmol/L (3.5-5.5); Total Protein, Blood 7.7 g/dL (6.4-8.2)
[2024-05-25] MEDS ORDERED: Tessalon200 MG PO (08:58)
[2024-05-25] MEDS ORDERED: DULERA 100 MCG/13 GM INH (08:59)
[2024-05-25] MEDS ORDERED: ALBU90OI INH (08:59)
[2024-05-25] MEDS ORDERED: Enoxaparin 40 MG/0.4 ML SYR SC SCH (09:00)
[2024-05-25] MEDS ORDERED: PRED20 PO (09:00)
[2024-05-25] MEDS ORDERED: AZIT250 PO (09:00)
[2024-05-25] MEDS ORDERED: Azithromycin 500 MG in NS 250 ML IV SCH (21:00)
== END 2024-05-25 09:16 | disposition home or self-care (01) ==
LOC: ER 17:05 → ERHOLD 17:06
PROVIDERS: Physician Assistant; ADMIT Internal Medicine
DX: J44.1 Chronic obstructive pulmonary disease with (acute) exacerbation (principal); J20.9 Acute bronchitis, unspecified; E03.9 Hypothyroidism, unspecified; F32.A Depression, unspecified; R06.02 Shortness of breath; R07.89 Other chest pain; R05.1 Acute cough; Z88.0 Allergy status to penicillin; Z88.5 Allergy status to narcotic agent; Z88.8 Allergy status to other drugs, medicaments and biological substances; Z79.899 Other long term (current) drug therapy
CPT/HCPCS: 0241U; 36415; 70498; 71046; 71260; 80053; 83735; 83880; 84484; 85025; 85379; 93005; 93010; 94640; 94664; 96365; 96375; 96375-59; 96376; 99285-25; A9270; G0378; J0456; J2470; J2919; J7030; J7050; Q9967

== ENCOUNTER → 2024-05-24 | Outpatient (CLI) | payer OTHER ==
[~2024-05-24] MED LIST changes: +ALBU90OI INH; +AZIT250 PO; +DULERA 100 MCG/13 GM INH; +PRED20 PO; +Tessalon200 MG PO
[2024-05-24 15:17] LABS: BASOPHILS ABSOLUTE AUTO 0.04 K/mm3 (0.00-0.23); BASOPHILS PERCENT AUTO 1 % (0-2); EOSINOPHILS ABSOLUTE AUTO 0.03 K/mm3 (0.00-0.68); EOSINOPHILS PERCENT AUTO 0 % (0-6); Hematocrit 35.3 % (33.0-51.0); IMMATURE GRAN ABSOLUTE AUTO 0.02 K/mm3 (0.00-0.10); IMMATURE GRAN PERCENT AUTO 0 % (0-1); LYMPHOCYTES ABSOLUTE AUTO 1.47 K/mm3 (0.84-5.20); LYMPHOCYTES PERCENT AUTO 22 % (21-46); MONOCYTES ABSOLUTE AUTO 0.54 K/mm3 (0.16-1.47); MONOCYTES PERCENT AUTO 8 % (4-13); Mean Corpuscular HGB 29.8 pg (26.0-34.0); Mean Corpuscular Volume 88 fL (80-100); Mean Platelet Volume 9.7 fL (9.1-12.4); NEUTROPHILS ABSOLUTE AUTO 4.67 K/mm3 (1.96-9.15); NEUTROPHILS PERCENT AUTO 69 % (41-73); Platelet Count 282 K/mm3 (150-400); RDW Standard Deviation 44.1 fL (35.1-46.3); Red Blood Cell Count 4.03 M/mm3 (3.80-5.20); White Blood Cell Count 6.77 K/mm3 (4.00-11.30)
[2024-05-24 15:26] LABS: Albumin, Blood 3.9 g/dL (3.4-5.0); Albumin/Globulin Ratio 0.9 (0.8-1.8); Bilirubin, Total 0.6 mg/dL (0.1-1.0); Bun/Creatinine Ratio 15.2 (12.0-20.0); Calcium, Blood 9.1 mg/dL (8.5-10.1); Creatinine, Blood 0.99 mg/dL (0.40-1.00); Globulin, Blood 4.3 g/dL (2.2-4.0); Potassium, Blood 3.8 mmol/L (3.5-5.5); Total Protein, Blood 8.2 g/dL (6.4-8.2)
== END | disposition home or self-care (01) ==
LOC: LAB SHORT 15:12 → LAB 15:12
PROVIDERS: Physician Assistant
DX: R06.02 Shortness of breath (principal); R07.89 Other chest pain
CPT/HCPCS: 80053; 83880; 85025; 85379

== ENCOUNTER 2025-01-24 15:39 | Emergency (ER) | payer OTHER ==
[~2025-01-24] VITALS: Ht 170.2 cm; Wt 45.4 kg
[~2025-01-24 15:39] MED LIST changes: +ALBU90OI INH; +AZIT250 PO; +CATAPRES0.1 MG; +DULERA 100 MCG/13 GM INH; +LEVSOD75; +ONDA4ODT; +PRAZ2; +PRED20 PO; +TRAZ150T57; +Tessalon200 MG; +Tessalon200 MG PO; +WIXELA 250-501 EAC1
[2025-01-24 16:42] LABS: BASOPHILS ABSOLUTE AUTO 0.04 K/mm3 (0.00-0.23); BASOPHILS PERCENT AUTO 1 % (0-2); EOSINOPHILS ABSOLUTE AUTO 0.23 K/mm3 (0.00-0.68); EOSINOPHILS PERCENT AUTO 4 % (0-6); Hematocrit 34.6 % (33.0-51.0); Hemoglobin 11.6 g/dL (11.5-16.0); IMMATURE GRAN ABSOLUTE AUTO 0.00 K/mm3 (0.00-0.10); IMMATURE GRAN PERCENT AUTO 0 % (0-1); LYMPHOCYTES ABSOLUTE AUTO 1.43 K/mm3 (0.84-5.20); LYMPHOCYTES PERCENT AUTO 25 % (21-46); MONOCYTES ABSOLUTE AUTO 0.54 K/mm3 (0.16-1.47); MONOCYTES PERCENT AUTO 9 % (4-13); Mean Corpuscular HGB Conc 33.5 g/dL (31.5-36.5); Mean Corpuscular Volume 91 fL (80-100); NEUTROPHILS ABSOLUTE AUTO 3.55 K/mm3 (1.96-9.15); NEUTROPHILS PERCENT AUTO 61 % (41-73); NRBC ABSOLUTE 0.00 K/mm3 (0.00-0.02); NRBC Auto 0.0 /100 WBC (0.0-0.2); Platelet Count 193 K/mm3 (150-400); RDW Coefficient Variation 13.1 % (11.7-14.2); RDW Standard Deviation 43.2 fL (35.1-46.3)
[2025-01-24 17:36] LABS: Alanine Aminotransfer (ALT/SGP 18.0 U/L (12-78); Albumin, Blood 4.1 g/dL (3.4-5.0); Albumin/Globulin Ratio 1.4 (0.8-1.8); Anion Gap 2.0 mmol/L (3-11); Aspartate Aminotrans (AST/SGOT 16.0 U/L (12-37); Bilirubin, Total 0.4 mg/dL (0.1-1.0); Blood Urea Nitrogen 6.0 mg/dL (8-24); CO2, Blood 32.0 mmol/L (21-32); Calcium, Blood 8.9 mg/dL (8.5-10.1); Chloride, Blood 105.0 mmol/L (98-108); Creatinine, Blood 0.89 mg/dL (0.40-1.00); Globulin, Blood 3.0 g/dL (2.2-4.0); Glucose, Blood 118.0 mg/dL (70-99); Potassium, Blood 3.8 mmol/L (3.5-5.5); Sodium, Blood 135.0 mmol/L (136-145); Total Protein, Blood 7.1 g/dL (6.4-8.2)
[2025-01-24 19:27] LABS: Source, Urine Clean Catch
[2025-01-24 19:45] LABS: Bilirubin, Urine Neg (Neg); Color, Urine Yellow (P-Yellow); Glucose Qualitative, Urine Neg (Neg); Ketones, Urine Neg (Neg); Leukocyte Esterase, Urine Neg (Neg); Protein, Urine Neg (Neg); Specific Gravity, Urine 1.010 (1.003-1.022); Urobilinogen, Urine NORM (Normal)
[2025-01-24 20:08] LABS: Red Blood Cells, Urine 0-2 /hpf (0-2); White Blood Cells, Urine 0-2 /hpf (0-5)
[2025-01-24 23:03] VITALS: BP 116/78
[2025-01-24] MEDS ORDERED: Morphine Sulfate 4 MG/1 ML Injection IV ONE (23:15)
== END 2025-01-24 23:27 | disposition short-term general hospital (02) ==
LOC: ER 15:39
PROVIDERS: Student in an Organized Health Care Education/Training Program
DX: K62.3 Rectal prolapse (principal); K59.00 Constipation, unspecified; Z88.5 Allergy status to narcotic agent; Z88.0 Allergy status to penicillin; Z88.8 Allergy status to other drugs, medicaments and biological substances; Z79.51 Long term (current) use of inhaled steroids; Z79.890 Hormone replacement therapy; Z79.899 Other long term (current) drug therapy
CPT/HCPCS: 74177; 80053; 81001; 83690; 85025; 93005; 93010; 96374-59; 99285-25; J2270; Q9967